=== PATIENT | female | born 2000 | race Caucasian/White ===

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

== ENCOUNTER 2022-02-01 20:11 | Emergency (ER) | payer BC ==
[~2022-02-01] VITALS: Ht 170.2 cm; Wt 45.4 kg
[2022-02-01 21:03] VITALS: BP_SYST 99
--- NOTE | 2022-02-01 21:09 | NUR ---
Patient was given urine cup for urine sample collection
--- NOTE | 2022-02-01 21:09 | NUR ---
Patient triaged and placed in waiting room. VS checked and patient appears in no acute distress at this time. Accompanied by self, awaiting available bed, and MD notified of need for MSE.
[2022-02-01] MEDS ORDERED: cephALEXin 500 MG CAPSULE PO ONE (22:45)
[2022-02-01] MEDS ORDERED: PHENAZOPYRIDINE HCL 100 MG TABLET PO ONE (22:45)
[2022-02-01] MEDS ORDERED: ACETAMINOPHEN 500 MG TABLET PO ONE (22:45)
[2022-02-01] MEDS ORDERED: ACET-2634 PO (22:46)
[2022-02-01] MEDS ORDERED: PHEN-890 PO (22:46)
[2022-02-01] MEDS ORDERED: CEPH-548 PO (22:46)
--- NOTE | 2022-02-01 23:32 | NUR ---
Patient given verbal discharge instructions by Dr Moseley and verbalizes understanding. ER MD discussed with patient the care provided. Patient in stable condition. Rx of Pyridium, Keflex and Tylenol sent to pharmacy of choice by Dr Moseley. Patient educated on pain management and to follow up with PMD. Opportunity for questions provided and answered by Dr Moseley. Patient left without written instructions.
--- NOTE | 2022-02-01 23:32 | NUR ---
Patient left without taking ordered medicines. ER MD aware
[2022-02-02 00:19] LABS: BILIRUBIN,URINE NEGATIVE (NEGATIVE); BLOOD, URINE 3+ (NEGATIVE); CLARITY/URINE CLEAR (CLEAR); COLOR,URINE YELLOW (YELLOW); GLUCOSE,URINE NEGATIVE (NEGATIVE); KETONES,URINE NEGATIVE (NEGATIVE); LEUKOCYTE ESTERASE ,URINE TRACE (NEGATIVE); NITRITE, URINE POSITIVE (NEGATIVE); PROTEIN URINE 1+ (NEGATIVE); UROBILINOGEN,URINE 0.2 (0.2-1.0)
[2022-02-02 01:16] LABS: BACTERIA,URINE FEW /HPF (None Seen); MUCUS,URINE None Seen /LPF (None Seen)
[2022-02-02 01:17] LABS: TRIPLE PHOSPHATE CRYSTAL,UR 0-10 /HPF (None Seen)
== END 2022-02-01 23:32 | disposition home or self-care (01) ==
LOC: SED 20:11
DX: N30.01 Acute cystitis with hematuria (principal); Z79.899 Other long term (current) drug therapy
CPT/HCPCS: 81000; 99283